=== PATIENT | female | born 1995 | race Caucasian/White ===

== ENCOUNTER 2017-05-02 19:02 | Emergency (ER) | payer OTHER ==
[~2017-05-02] VITALS: Ht 160 cm; Wt 52.5 kg
[~2017-05-02 19:02] MED LIST: NOCURR
[2017-05-02] MEDS ORDERED: IBUPROFEN 800 MG TABLET PO ONE (20:00)
[2017-05-02] MEDS ORDERED: POVIDONE-IODINE 10% 15 ML SOLUTION UD TP ONE (20:15)
[2017-05-02 20:29] VITALS: BP 121/75
== END 2017-05-02 20:31 | disposition home or self-care (01) ==
LOC: EMS 19:03
DX: S60.351A Superficial foreign body of right thumb, initial encounter (principal); F12.90 Cannabis use, unspecified, uncomplicated; F17.210 Nicotine dependence, cigarettes, uncomplicated; W45.8XXA Other foreign body or object entering through skin, initial encounter; Y93.89 Activity, other specified; Y92.89 Other specified places as the place of occurrence of the external cause; Y99.8 Other external cause status
CPT/HCPCS: 99283